=== PATIENT | female | born 1985 | race Caucasian/White ===

== ENCOUNTER → 2021-12-20 | Outpatient (CLI) | payer BC, MEDICAID ==
[~2021-12-20] MED LIST: ALBU2.5V8 IH; CETI10TA74 PO; DULO60CA7 PO; FLUT1DIS3 IH; FLUT9.9S NS; OMEP20TA63 PO; TRAZ-118 PO
[2021-12-20 13:24] LABS: BASO % 0 % (0-3); EOS # 0.3 x10^3/uL (0.0-0.7); EOS % 4 % (0-3); HEMATOCRIT 39.6 % (36.0-47.0); HEMOGLOBIN 13.5 g/dL (12.0-15.5); LYMPH # 2.2 x10^3/uL (1.0-4.8); LYMPH % 30 % (24-48); MEAN CORPUSCULAR HEMOGLOBIN 30 pg (25-35); MEAN CORPUSCULAR HGB CONC 34 g/dL (31-37); MEAN CORPUSCULAR VOLUME 89 fL (79-100); MONO # 0.3 x10^3/uL (0.0-1.1); MONO % 4 % (0-9); NEUT # 4.5 x10^3/uL (1.8-7.7); NEUT % 62 % (31-73); PLATELET COUNT 247 x10^3/uL (140-400); RED BLOOD COUNT 4.46 x10^6/uL (3.50-5.40); RED CELL DISTRIBUTION WIDTH 13.1 % (11.5-14.5); WHITE BLOOD COUNT 7.4 x10^3/uL (4.0-11.0)
[2021-12-20 13:46] LABS: ALBUMIN 3.9 g/dL (3.4-5.0); CALCIUM 8.9 mg/dL (8.5-10.1); CREATININE 0.8 mg/dL (0.6-1.0); GFR 82.1; POTASSIUM 3.5 mmol/L (3.5-5.1); TOTAL BILIRUBIN 0.4 mg/dL (0.2-1.0); TOTAL PROTEIN 7.7 g/dL (6.4-8.2)
[2021-12-20 13:48] LABS: BACTERIA,URINE FEW /HPF (0-FEW); RBC,URINE OCC /HPF (0-2); WBC,URINE 0 /HPF (0-4)
== END ==
LOC: SURGPAT 12:01
PROVIDERS: ATTEND Obstetrics & Gynecology
DX: Z01.812 Encounter for preprocedural laboratory examination (principal); Z20.822 Contact with and (suspected) exposure to COVID-19
CPT/HCPCS: 36415; 80053; 81001; 85025; U0003

== ENCOUNTER 2021-12-25 06:00 | Observation (INO) | payer BC, MEDICAID ==
[2021-12-20 12:33] VITALS: BP 117/70
[~2021-12-25] VITALS: Ht 162.6 cm; Wt 76.0 kg
[2021-12-25] VITALS (10 sets, daily range): BP systolic 97–119; BP diastolic 48–70
[~2021-12-25 06:00] MED LIST changes: +IV RINGERS,LACTATED 1000ML 1,000 ML IV SCH; +PROCHLORPERAZINE 10 MG/2 ML VIAL. IVP PRN; +fentaNYL PF VIAL 100 MCG/2 ML VIAL IVP PRN
[2021-12-25] MEDS ORDERED: BUPIVACAINE-EPI 0.25% 30 ML VIAL KIT. ONE (06:51)
[2021-12-25] MEDS ORDERED: INDIGOTINDISULFONATE SODIUM 40 MG/5 ML AMPUL. ONE (06:51)
[2021-12-25] MEDS ORDERED: ESTROGENS, CONJ VAGINAL CREAM 30GM TUBE. ONE (06:51)
[2021-12-25] MEDS ORDERED: ROCURONIUM 50 MG/5 ML VIAL. ONE (07:00)
[2021-12-25] MEDS ORDERED: fentaNYL PF VIAL 250 MCG/5 ML VIAL ONE (07:00)
[2021-12-25] MEDS ORDERED: PROPOFOL 10 MG/ML (20ML) VIAL. IV ONE (07:01)
[2021-12-25] MEDS ORDERED: DEXAMETHASONE SOD PHOS 4 MG/ML VIAL ONE (07:02)
[2021-12-25] MEDS ORDERED: LIDOCAINE 2% PF 5 ML VIAL. ONE (07:03)
[2021-12-25] MEDS ORDERED: ePHEDrine PF IN SALINE 50 MG/10 ML SYRINGE. IV ONE (07:44)
[2021-12-25] MEDS ORDERED: ONDANSETRON PF 4 MG/2 ML VIAL. ONE (08:40)
[2021-12-25] MEDS ORDERED: SEVOFLURANE 61 TO 120 MINUTES. IH ONE (08:57)
[2021-12-25] MEDS ORDERED: PROCHLORPERAZINE 10 MG/2 ML VIAL. ONE (09:13)
[2021-12-25] MEDS ORDERED: diphenhydrAMINE 50 MG/ML VIAL IV PRN (09:15)
[2021-12-25] MEDS ORDERED: MORPHINE SULFATE 2 MG/ML INJ. IV PRN (09:15)
[2021-12-25] MEDS ORDERED: LACTULOSE 20 GM/30 ML SOLUTION. PO PRN (09:15)
[2021-12-25] MEDS ORDERED: MAGNESIUM HYDROXIDE 2,400 MG/30 ML ORAL.SUSP. PO PRN (09:15)
[2021-12-25] MEDS ORDERED: SUGAMMADEX SODIUM 200 MG/2 ML VIAL. IVP ONE (09:15)
[2021-12-25] MEDS ORDERED: CALCIUM CARBONATE 500 MG TAB.CHEW PO PRN (09:15)
[2021-12-25] MEDS ORDERED: diphenhydrAMINE HCL 25 MG CAPSULE PO PRN (09:15)
[2021-12-25] MEDS ORDERED: ZOLPIDEM 5 MG TABLET. PO PRN (09:15)
[2021-12-25] MEDS ORDERED: MAG HYDROX/ALUMINUM HYD/SIMETH 30 ML ORAL.SUSP PO PRN (09:15)
[2021-12-25] MEDS ORDERED: ONDANSETRON PF 4 MG/2 ML VIAL. IV PRN (09:15)
[2021-12-25] MEDS ORDERED: 0.9 % SODIUM CHLORIDE 10 ML DISP.SYRIN. IV PRN (09:15)
[2021-12-25] MEDS ORDERED: NALOXONE 0.4 MG/ML VIAL. IV PRN (09:15)
--- NOTE | 2021-12-25 09:17 | PDOC4 ---
BRIEF OPERATIVE NOTE Date: Dec 25, 2021 Pre-Op Diagnosis pelvic pain, dysmenorrhea,menorrhagia Post-Op Diagnosis same Procedure Performed LAVH/bilateral salpingectomy Surgeon Dr. Elsa Miller Toy Maker CHARLENE Hansen Anesthesiologist Dr. Mckeon Anesthesia Type: General Blood Loss 50cc IV Fluid 1500cc Urine Output 50cc clear via kaur Specimens Obtained cervix, uterus, bilateral tubes Findings small RV uterus, normal bilateral tubes and ovaries, normal appendix, normal RUQ, no significant adhesive disease Complications none Operative Note [id number] ELSA MILLER MD Dec 25, 2021 09:17
--- NOTE | 2021-12-25 12:45 | OP ---
DATE OF SURGERY: 12/25/2021 PREOPERATIVE DIAGNOSES: Pelvic pain, dysmenorrhea and menorrhagia. POSTOPERATIVE DIAGNOSES: Pelvic pain, dysmenorrhea and menorrhagia. PROCEDURE: Laparoscopic-assisted vaginal hysterectomy with bilateral salpingectomy. SURGEON: Elsa Miller MD ASSISTANT GENERAL MANAGER: CHARLENE Marie ANESTHESIOLOGIST: Dr. Mckeon. ANESTHESIA: General. BLOOD LOSS: 50 mL URINE OUTPUT: 50 mL clear via Restrepo catheter. IV FLUIDS: 1500 mL SPECIMENS: Cervix, uterus with bilateral tubes. FINDINGS: A small retroverted uterus, normal bilateral tubes and ovaries, normal appendix, grossly normal right upper quadrant. No significant pelvic adhesive disease. COMPLICATIONS: None. DESCRIPTION OF PROCEDURE: This patient was taken to the operating room where general anesthesia was placed. The patient was placed in dorsal lithotomy position in Sameer stirrups. The patient's abdomen and vagina were both prepped and draped in the normal sterile fashion and a Restrepo catheter had been inserted under sterile technique. Upon my arrival, a timeout was performed. Once everyone agreed on the patient, the site, the procedure, the antibiotics, allergies, etc., the procedure was initiated. A bivalve speculum was placed in the patient's vagina. A single-tooth tenaculum was used to grasp the anterior lip of the cervix. A 10 mL of 0.25% bupivacaine with epinephrine was used to circumferentially inject around the cervix for both hemodissection and hemostatic purposes later. The Valtchev uterine manipulator was placed through the endocervical os, locked on the single tooth tenaculum and the bivalve speculum was then removed. Top gloves were discarded and changed. Attention was then turned to the abdomen where a small infraumbilical skin incision was made with the scalpel. Prior to doing that, it was injected with 3-4 mL of the 0.25% local. A small incision was made infraumbilically and then a curved Nya was used to dissect through the subcuticular layer to the fascia. The 5 mm Visiport was used to directly enter the abdominal cavity. Opening patient pressure was 2-3 mmHg. Carbon dioxide gas was used to then appropriately insufflate the abdominal cavity to maintain a pressure of 15 mmHg. Direct abdominal placement had been confirmed via the laparoscope prior to going up to high pressure flow. Once this was done, the overhead lights were dimmed. The patient was placed in Trendelenburg position. There was no significant adhesive disease. Please see the above findings. So at this point, the right and left lower quadrant ports were placed first making sure there were no adhesions on the inside then transilluminating the abdominal wall, finding an area clear of any vasculature, injecting with the 0.25% width, making a small incision and placing the 5 mm atraumatic trocar in under direct visualization. This was done on the right and left lower quadrant sides, 4-5 mL of air was placed in the trocar cuff. Once these were in, the camera was moved laterally to look at the infraumbilical port. It was also clear and 4-5 mL of air was placed in this trocar cuff as well. Initially, right at the skin level, the right lower quadrant port was bleeding just to touch, but there was nothing on the inside and once we placed it in and inflated the trocar cuff and placed the cuff down on the skin, it stopped bleeding immediately and I checked it again at the end and there was nothing. So at this point, a right upper quadrant appendix was seen, bowel all were grossly normal. There was no significant pelvic adhesive disease. She had a normal retroverted uterus, tubes and ovaries. So at this point, the left and right ureters were both seen coursing low in the pelvis. She wished to retain both ovaries as she was young for hormones. So at this point, we elevated the left tube and going below the tube above the ovary, doing a salpingectomy, crossing the left uteroovarian pedicle and the left round ligament. This was done exactly the same on the right side, elevating the right tube and going between the tube and ovary, below the tube, above the ovary doing a salpingectomy, crossing the right uteroovarian pedicle. This was all done with the laparoscopic LigaSure and then the right round ligament. Once this was done, the uterus was pushed cephalad towards the head with the manipulator and the bladder flap was grasped with the [place] and the monopolar hook was used to cut across and create the bladder flap sharply. Once this was taken down, the uterine vessels were obtained on both sides, getting very low and staying inside that pedicle on the patient's left side and then hugging posteriorly going through the cardinal and broad ligaments on the right side. Once the uterine vessels were obtained and hugging the cervix and staying posteriorly. Once this was done, the uterus was completely blanched and clear and the vessels had been secured. All instruments were removed from the abdomen and attention was turned vaginally. The patient was taken out of the steep Trendelenburg, overhead lights were turned back on. Legs were elevated. The single tooth and Valtchev were removed. A weighted speculum was placed in the patient's vagina. Thyroid Russel clamps were placed on the anterior and posterior lips of the cervix respectively. A scalpel was used to make a circumferential incision in the cervix, staying low on the cervix as she had had a prior LEEP. Posterior cul-de-sac was easily entered. It was bulging. It was sharply entered with curved Mccord scissors. A #0 Vicryl stitch was used to secure the posterior peritoneum to the vaginal cuff, tagged with a curved Nya clamp and the needle was cut and passed off. The short weighted vaginal speculum was removed and replaced with the long weighted Luzmaria speculum in the posterior cul-de-sac. The bladder flap was taken up gently with an open Ray-Papi 4 x 4 and the anterior cul-de-sac was digitally and bluntly entered. Once this was done, you could see both pedicles on both sides, very thin. Curved Heaneys x 2 were placed on the patient's left uterosacral ligament and actually went around the entire remaining pedicle. They were doubly clamped with curved Heaneys, cut with curved Mccord scissors and suture ligated x 2 with 0 Vicryl. Second one was taken through the vaginal cuff, securing uterosacral ligament to the vaginal cuff, tagged with a straight Nya clamp and the needle was cut and passed off. The entire left side was completely free. The right side, same thing, double clamped with curved Heaneys, cut with curved Mccord scissors, suture ligated x 2 with 0 Vicryl. Second one was taken through the vaginal cuff, securing uterosacral ligament to the vaginal cuff, tagged with a straight Nya clamp and the needle was cut and passed off. The uterus was completely free at this point, so cervix, uterus and bilateral tubes were delivered in total and passed off for permanent pathology. A sponge stick was used to examine the pedicles. Once they were found to be hemostatic, the long Luzmaria speculum was removed and replaced with the short weighted vaginal speculum in the vagina. A long Allis was used to grasp the anterior bladder peritoneum and 2-0 Vicryl was taken through the anterior bladder peritoneum, left uterosacral ligament, posterior peritoneum and right uterosacral ligament, thus closing the peritoneum in a pursestring like fashion. Once this was done, the right and left uterosacral tags were clipped and the cuff was closed in an anterior to posterior running locked fashion with a full length 2-0 Vicryl. A couple imbricating stitches were placed with excellent results. The cuff was hemostatic. All instruments were correct x 2 by OR personnel prior to going above. The patient's legs were taken down. Overhead lights were redimmed. She was placed back in Trendelenburg. A second look was done taking from above, reinsufflating the abdomen with her in Trendelenburg position and overhead lights dimmed. Copious irrigation revealed hemostasis. Tisseel was placed over the pedicles. The right and left pericolic gutters were clear. There was no active bleeding and the syringe was used to deflate all 3 of the trocar cuffs. I took out the right one first just to watch it closer as that is where a tiny bit of a skin superficial bleeding had been at the beginning. Once it was removed, there was no active bleeding from the abdomen and there was nothing at all that had ever dripped inside. So I watched it, even let some of the gas go down and watched it. No bleeding. The cuff remained dry through all of this and then we removed the left lower quadrant port as well and it remained dry. I looked back at the right one last time, it was clear and the cuff was clear. Gas was released from the infraumbilical port. All 3 port sites were closed with 4-0 nylon at the skin. The patient was awakened from anesthesia and has been brought to recovery room in stable condition. The Restrepo catheter was ordered to be taken out in the operating room. AVINASH/ROSA BABCOCK: Shweta TID: [id number]
[2021-12-25] MEDS: oxyCODONE/APAP 5/325 1 TAB TABLET PO PRN ×2 (15:17→15:42)
--- NOTE | 2021-12-25 18:48 | NUR ---
Dismissed per w/c to in car. Home care instructions given along with a copy.Report given to dr srivastava. Stable on feet.
--- NOTE | 2021-12-27 19:09 | PATHOLOGY ---
[facility] Accession Number: [id number] . 01 Material submitted: . uterus - UTERUS, CERVIX, AND BILATERAL TUBES . 01 Clinical history: . DYSMENORRHEA, DYSPAREUNIA, PELVIC PAIN . 02 Diagnosis: Uterus and attached bilateral fallopian tubes, laparoscopic assisted vaginal hysterectomy with bilateral salpingectomy: - Chronic cervicitis with squamous metaplasia, focal. - Adenomyosis, uterine corpus, subbasal. - Inactive/weakly proliferative endometrium. - Leiomyoma, intramural, measuring 3 mm. - Congestion of bilateral fallopian tubes. (RATNA:kaden; 12/27/2021) [facility] 12/27/[address] [place] [address] . 02 Comment: There is no atypia or evidence of malignancy. (RATNA:kaden; 12/27/2021) . 02 Electronically signed: . Wily Escamilla MD, Pathologist NPI- [id number] . 01 Gross description: . Fixative: Formalin Labeled: Uterus, cervix, and bilateral tubes Specimen received: Intact hysterectomy with attached bilateral fallopian tubes Uterus weight: 41 g Uterus: 7.2 cm from fundus to cervix, 4.2 cm from cornu to cornu, 3.8 cm from anterior to posterior cm Serosa: Kalama-doll with multiple irregular defects possibly consistent with surgical defects. The defects cover 30% of the surfaces. Ectocervix: Mpgy-jog-syl and glistening with focal possible surgical defects at the 6:00 region Cervical os: Ovoid, measuring 1.0 x 0.7 cm Endocervical canal: 2.5 x 0.6 cm Endometrial cavity: 2.8 x 1.8 cm Endometrial thickness: 0.2 cm Myometrial thickness: 1.5 cm Lesions/abnormalities: Previously described Right fallopian tube: 5.9 cm in length, 0.6 cm in diameter, with fimbria Right fallopian tube appearance: Red-purple and smooth with multiple minute paratubal cysts measuring less than 0.1 cm, and sectioned to reveal a pinpoint lumen Left fallopian tube: 4.5 cm in length, 0.6 cm in diameter, with fimbria Left fallopian tube appearance: Red-purple and smooth with multiple minute paratubal cysts measuring less than 0.1 cm, and sectioned to reveal a pinpoint lumen . Cytometry Technologist sections are submitted as follows: A1 12:00 cervix A2 6:00 cervix A3 anterior endomyometrium A4 posterior endomyometrium A5 right fallopian tube A6 left fallopian tube ([facility]; 12/26/2021) [facility] 12/26/2021 1043 Local . 02 Pathologist provided ICD-10: N72, N87.9, N80.0, N85.9, D25.1, N94.6 . 02 CPT . 538328 Specimen Comment: A courtesy copy of this report has been sent to [phone] Specimen Comment: Report sent to Performed at: 01 [facility] [address], [place] [id number] MD Nolan Cameron MD Phone: [phone] Performed at: 02 [facility] [address] [place], [place] [id number] MD Wily Escamilla MD Phone: [phone]
== END 2021-12-25 18:48 | disposition home or self-care (01) ==
LOC: SURG 06:00 → EDUNIT# 07:30 → 3 SO LND 09:03
PROVIDERS: ADMIT Obstetrics & Gynecology; ATTEND Obstetrics & Gynecology
DX: N94.6 Dysmenorrhea, unspecified (principal); Z20.822 Contact with and (suspected) exposure to COVID-19; N92.0 Excessive and frequent menstruation with regular cycle; N85.4 Malposition of uterus; R10.2 Pelvic and perineal pain
CPT/HCPCS: 36415; 58552; 81025; 86850; 86900; 86901; 88307; 96374; 96375; A4314; A4344; A4930; A6219; G0378; G0379; J0690; J0780; J1100; J2270; J2405; J2704; J3010; J3480; J3490; A4315; A4657